=== PATIENT | female | born 1975 | race Caucasian/White ===

== ENCOUNTER 2017-04-24 05:40 | Day surgery (SDC) | payer OTHER ==
[2017-04-24] MEDS ORDERED: METOCLOPRAMIDE 10 MG INJ (07:00)
[2017-04-24] MEDS ORDERED: CEFAZOLIN 1 GM INJ (07:00)
[2017-04-24] MEDS ORDERED: FENTAnyl 50 MCG/ML VIAL (07:48)
[2017-04-24] MEDS ORDERED: MIDAZOLAM 1 MG/ML 2 ML INJ (07:50)
[2017-04-24] MEDS ORDERED: LIDOCAINE 2% (SDV) 5 ML INJ (07:52)
[2017-04-24] MEDS ORDERED: PROPOFOL 20 ML (07:52)
[2017-04-24] MEDS ORDERED: ONDANSETRON 4 MG INJ (07:52)
[2017-04-24] MEDS ORDERED: DEXAMETHASONE 4 MG/ML 1 ML INJ (07:53)
[2017-04-24] MEDS ORDERED: FENTAnyl 50 MCG/ML VIAL IV (09:00)
[2017-04-24] MEDS ORDERED: HYDROmorphONE (0.2 MG/ML) 10ML SYG IV ×2 (09:00)
[2017-04-24] MEDS ORDERED: METOCLOPRAMIDE 10 MG INJ IV (09:00)
[2017-04-24] MEDS ORDERED: MEPERIDINE 25 MG INJ IV (09:00)
[2017-04-24] MEDS ORDERED: ONDANSETRON 4 MG INJ IV (09:00)
[2017-04-24] MEDS ORDERED: DIPHENHYDRAMINE 50 MG INJ IV (09:00)
[2017-04-24] MEDS: KETOROLAC 30 MG INJ IV (09:01)
[2017-04-24] MEDS: FENTAnyl 50 MCG/ML VIAL IV (09:16)
== END 2017-04-24 10:55 | disposition home or self-care (01) ==
LOC: SDS 05:40
DX: N92.1 Excessive and frequent menstruation with irregular cycle (principal); D25.9 Leiomyoma of uterus, unspecified
CPT/HCPCS: 58558; 88305

== ENCOUNTER → 2017-08-15 | Outpatient (CLI) | payer OTHER | END | disposition home or self-care (01) | LOC: HKI 15:28 | DX: M17.0 Bilateral primary osteoarthritis of knee (principal) | CPT/HCPCS: 73564; 73564-50 ==